=== PATIENT | male | born 1990 | race Caucasian/White ===

== ENCOUNTER 2023-04-04 17:20 | Emergency (ER) | payer OTHER, SELFPAY ==
[2023-04-04 17:28] VITALS: BP 164/79; PULSE 83; RESP 16; TEMP 36.8; O2SAT 99; BMI 21.4
--- NOTE | 2023-04-04 19:34 | DI.CT.S_ITS ---
PROCEDURE: CT SOFT TISSUE NECK W CON INDICATIONS: Chronic lymphadenopathy with problems swallowing TECHNIQUE: After the administration of intravenous contrast, 3.0 mm axial sections acquired from the sella to the aortic arch. Additional oblique axial 3.0 mm sections acquired through the pharynx. 3 mm thick coronal and sagittal reformats were generated. For radiation dose reduction, the following was used: automated exposure control. COMPARISON: None. FINDINGS: Image quality: Excellent. Lymph nodes: No lymphadenopathy in the neck by size criteria. There are bilateral scattered cervical lymph nodes measuring up to 0.7 cm in short axis. Vessels: Visualized vasculature appears patent. Neck spaces: The oropharynx, nasopharynx, and pharynx demonstrate no discrete mucosal mass lesions. There is mild concentric mucosal thickening within the oropharynx. The vocal cords, false vocal cords, pyriform sinuses, epiglottis, vallecula, and tongue base appear within normal limits. Extramucosal spaces appear unremarkable. Glands: The parotid and submandibular glands appear normal. Thyroid gland demonstrates no discrete nodules Miscellaneous: Visualized brain and orbits appear normal. Lung apices appear clear. Superficial soft tissues appear normal. Bones: No suspicious bony lesions. Visualized sinuses and mastoids appear unremarkable. IMPRESSION: 1. No lymphadenopathy in the neck by size criteria. 2. No discrete mucosal mass lesions or evidence of high-grade airway narrowing. Dictated by: Tom Heredia M.D. on 04/04/2023 at 20:48 Approved by: Tom Heredia M.D. on 04/04/2023 at 20:54
--- NOTE | 2023-04-04 19:34 | ED.GENADULT ---
HPI - General Adult General Chief complaint: Upper Respiratory Symptoms Stated complaint: dizzy, infection? upper resp., in pain Time Seen by Provider: 04/04/23 19:24 Source: patient Mode of arrival: Family Vehicle History of Present Illness HPI narrative: Patient is a 32-year-old male who for many months if not longer he is had enlarged lymph nodes in his neck. He states that in the past he has been treated with antibiotics without any improvement of the symptoms. He also states they are uncomfortable. Causing him problems swallowing. He is not had any problems breathing. Is also having episodes of lightheadedness. Despite his symptoms were going on for such a long time he states that recently the dizziness seems to becoming somewhat worse which is why he is here in the emergency department today. Related Data Previous Rx's Medication Instructions Recorded fluticasone propionate 50 1 spray intranasal Q12H #16 grams 03/16/23 mcg/actuation nasal spray,suspension (Flonase Allergy Relief) Allergies Allergy/AdvReac Type Severity Reaction Status Date / Time No Known Drug Allergies Allergy Unverified 04/04/23 17:37 Review of Systems Constitutional Constitutional: Reports system reviewed and no additional complaints, except as documented ENT Ears, Nose, Mouth, and Throat: Reports system reviewed and no additional complaints, except as documented Cardiovascular Cardiovascular: Reports system reviewed and no additional complaints, except as documented Respiratory Respiratory: Reports system reviewed and no additional complaints, except as documented Integumentary/Breasts Skin/Breast: Reports system reviewed and no additional complaints, except as documented Allergic/Immunologic Allergic/Immunologic: Reports system reviewed and no additional complaints, except as documented Patient History Social History Smoking Status: Current every day smoker Smoking Status: Current every day smoker Substance Use Type: marijuana Exam Initial Vital Signs Initial Vital Signs: Vital Signs Temperature 98.2 F 04/04/23 17:28 Pulse Rate 83 04/04/23 17:28 Respiratory Rate 16 04/04/23 17:28 Blood Pressure 164/79 H 04/04/23 17:28 Pulse Oximetry 99 04/04/23 17:28 Oxygen Delivery Method Room Air 04/04/23 17:28 Const General: cooperative, comfortable and No ill appearing HENMT Head: normal to inspection Ears: hearing grossly normal bilaterally and TM's normal bilaterally Throat: posterior oropharynx normal Neck Lymphatic: lymphadenopathy (Bilateral anterior-posterior cervical lymph nodes) Resp Effort & Inspection: normal respiratory effort Auscultation: clear to auscultation bilaterally Cardio Rate: regular rate Skin General: no rashes or lesions noted Course Orders Ordered: ED Orders 04/04/23 19:34 CT soft tissue neck w con Stat 04/04/23 19:43 Complete Blood Count AUTO DIFF Stat Comprehensive Metabolic Panel Stat Lipase Stat Thyroid Stimulating Hormone Stat Vital Signs Vital signs: Vital Signs - 8 hr 04/04/23 19:51 04/04/23 19:52 04/04/23 19:52 Pulse Rate 63 61 Respiratory Rate Blood Pressure 140/84 Pulse Oximetry 100 100 Oxygen Delivery Method 04/04/23 21:17 Pulse Rate 64 Respiratory Rate 16 Blood Pressure 144/98 H Pulse Oximetry 98 Oxygen Delivery Method Room Air Medical Decision Making Lab Data Lab results reviewed: Yes I reviewed the patient's lab results. 04/04/23 19:43 04/04/23 19:43 Labs: Lab Results 04/04/23 04/04/23 04/04/23 Range/Units 19:43 19:43 19:43 WBC 13.0 H (4.5-11.0) X10^3/uL RBC 5.11 (4.5-5.9) X10^6/uL Hgb 15.2 (13.5-17.5) g/dL Hct 43.9 (41-53) % MCV 85.9 (80-100) fL MCH 29.7 (26-34) PG MCHC 34.6 (30-36) % RDW 14.0 (11.6-14.8) % Plt Count 297 (150-400) X10^3/uL Neut % (Auto) 58.2 (50-75) % Lymph % (Auto) 23.7 L (25-40) % [place] % (Auto) 9.7 (3-14) % Eos % (Auto) 7.3 H (2-4) % Baso % (Auto) 1.1 (0-2) % Neut # (Auto) 7600 H (6673-3347) /uL Lymph # (Auto) 3100 (9610-1374) /uL [place] # (Auto) 1300 H (0-900) /uL Eos # (Auto) 1000 H (0-450) /uL Baso # (Auto) 100 (0-100) /uL Sodium 136 L (137-145) mmol/L Potassium 3.7 (3.4-5.1) mmol/L Chloride 103 (98-107) mmol/L Carbon Dioxide 25 (22-32) mmol/L BUN 26 H (9-20) mg/dL Creatinine 0.81 (0.66-1.25) mg/dL Estimated GFR > 60 (>60) mL/min BUN/Creatinine Ratio 32.1 H (6-22) Glucose 101 H (70-100) mg/dL Calcium 9.3 (8.4-10.2) mg/dL Total Bilirubin 0.9 (0.2-1.3) mg/dL AST 24 (17-59) IU/L ALT 24 (<50) IU/L Alkaline Phosphatase 61 (38-126) U/L Total Protein 7.8 (6.3-8.2) g/dL Albumin 4.7 (3.5-5.0) g/dL Globulin 3.1 (1.7-4.1) g/dL Albumin/Globulin Ratio 1.5 (1.0-2.8) Lipase 67 (23-300) U/L TSH 4.03 (0.47-4.68) uIU/mL Imaging Data CT soft tissue of neck: Radiologist's Impression: PROCEDURE:? CT SOFT TISSUE NECK W CON ? INDICATIONS:? Chronic lymphadenopathy with problems swallowing ? TECHNIQUE:? After the administration of intravenous contrast, 3.0 mm axial sections acquired from the sella to the aortic arch.? Additional oblique axial 3.0 mm sections acquired through the pharynx.? 3 mm thick coronal and sagittal reformats were generated.? For radiation dose reduction, the following was used:? automated exposure control.? ? COMPARISON:? None. ? FINDINGS:? Image quality:? Excellent.? ? Lymph nodes:? No lymphadenopathy in the neck by size criteria.? There are bilateral scattered cervical lymph nodes measuring up to 0.7 cm in short axis. ? Vessels:? Visualized vasculature appears patent.? ? Neck spaces:? The oropharynx, nasopharynx, and pharynx demonstrate no discrete mucosal mass lesions.? There is mild concentric mucosal thickening within the oropharynx.? The vocal cords, false vocal cords, pyriform sinuses, epiglottis, vallecula, and tongue base appear within normal limits.? Extramucosal spaces appear unremarkable.? ? Glands:? The parotid and submandibular glands appear normal.? Thyroid gland demonstrates no discrete nodules ? Miscellaneous:? Visualized brain and orbits appear normal.? Lung apices appear clear.? Superficial soft tissues appear normal. ? Bones:? No suspicious bony lesions.? Visualized sinuses and mastoids appear unremarkable. ? ? ? IMPRESSION:? ? 1. No lymphadenopathy in the neck by size criteria. ? 2. No discrete mucosal mass lesions or evidence of high-grade airway narrowing. MDM Narrative Medical decision making narrative: On exam patient did have several bilateral less than 1 cm lymph nodes however on the CT scan there were no pathologic lymph nodes noted by size criteria. His symptoms been going on for months if not longer. There was no indication for antibiotics today. Will discharge patient home with instructions to follow-up with primary doctor. He was given return precautions. He expressed understanding and agreement. Discharge Plan Departure Patient Disposition: Home Clinical Impression: Dizziness Instructions: DI for Dizziness-Nonvertigo Activity Restrictions/Additional Instructions: Recommend that you continue to take all of your medications as directed it is important that you contact your primary doctor for follow-up. Return to the emergency department for new or worsening symptoms. Prescriptions: No Action fluticasone propionate [Flonase Allergy Relief] 50 mcg/actuation spray,suspension 1 spray intranasal Q12H Qty: 16 0RF Rx Instructions: administer into each nostril Referrals: Doctor Saul MD [Primary Care Provider] - Stand Alone Forms: Patient Portal/API
[2023-04-04 19:51] VITALS: PULSE 63; O2SAT 100
[2023-04-04 19:52] VITALS: BP 140/84; PULSE 61; O2SAT 100
[2023-04-04 19:56] LABS: Add Manual Diff / Slide Review NO; Basophils Absolute Auto 100 /uL (0-100); Basophils Percent Auto 1.1 % (0-2); Eosinophils Absolute Auto 1000 /uL (0-450); Eosinophils Percent Auto 7.3 % (2-4); Hematocrit 43.9 % (41-53); Hemoglobin 15.2 g/dL (13.5-17.5); Lymphocytes Absolute Auto 3100 /uL (1100-4500); Lymphocytes Percent Auto 23.7 % (25-40); Mean Corpuscular HGB Conc 34.6 % (30-36); Mean Corpuscular Hemoglobin 29.7 PG (26-34); Mean Corpuscular Volume 85.9 fL (80-100); Monocytes Absolute Auto 1300 /uL (0-900); Monocytes Percent Auto 9.7 % (3-14); Neutrophils Absolute Auto 7600 /uL (1500-7000); Neutrophils Percent Auto 58.2 % (50-75); Platelet Count 297 X10^3/uL (150-400); Red Blood Cell Count 5.11 X10^6/uL (4.5-5.9)
[2023-04-04 20:13] LABS: Alanine Aminotransferase 24 IU/L (<50); Albumin 4.7 g/dL (3.5-5.0); Albumin Globulin Ratio 1.5 (1.0-2.8); Alkaline Phosphatase 61 U/L (38-126); Aspartate Aminotransferase 24 IU/L (17-59); BUN Creatinine Ratio 32.1 (6-22); Bilirubin Total 0.9 mg/dL (0.2-1.3); Blood Urea Nitrogen 26 mg/dL (9-20); Calcium 9.3 mg/dL (8.4-10.2); Carbon Dioxide 25 mmol/L (22-32); Chloride 103 mmol/L (98-107); Estimated Glomerular Filt Rate > 60 mL/min (>60); Globulin 3.1 g/dL (1.7-4.1); Glucose 101 mg/dL (70-100); HEMOLYSIS < 15 (0-50); Lipase 67 U/L (23-300); Potassium 3.7 mmol/L (3.4-5.1); Sodium 136 mmol/L (137-145); Total Protein 7.8 g/dL (6.3-8.2)
[2023-04-04 20:43] LABS: Thyroid Stimulating Hormone 4.03 uIU/mL (0.47-4.68)
[2023-04-04 21:17] VITALS: BP 144/98; PULSE 64; RESP 16; O2SAT 98
== END 2023-04-04 21:18 | disposition home or self-care (01) ==
PROVIDERS: Emergency Provider Emergency Medicine
DX: R42 Dizziness and giddiness (principal); J02.9 Acute pharyngitis, unspecified; R13.10 Dysphagia, unspecified
CPT/HCPCS: 36415; 70491; 80053; 83690; 84443; 85025; 99283; 99284; Q9967

== ENCOUNTER 2024-01-22 18:38 | Emergency (ER) | payer OTHER, SELFPAY ==
[2024-01-22 18:47] VITALS: BP 190/86; PULSE 83; RESP 22; TEMP 37.1; O2SAT 99; BMI 21.4
--- NOTE | 2024-01-22 20:56 | ED.GENADULT ---
HPI - General Adult General Chief complaint: Hypertension Stated complaint: antibiotics didn't work/lump in throat/face numb Time Seen by Provider: 01/22/24 20:56 Source: patient Mode of arrival: Ambulatory History of Present Illness HPI narrative: Left prior to my evaluation Related Data Previous Rx's Medication Instructions Recorded fluticasone propionate 50 1 spray intranasal Q12H #16 grams 03/16/23 mcg/actuation nasal spray,suspension (Flonase Allergy Relief) cetirizine 10 mg tablet (Zyrtec) 10 mg PO DAILY PRN allergy 04/17/23 symptoms #90 tabs Allergies Allergy/AdvReac Type Severity Reaction Status Date / Time No Known Drug Allergies Allergy Unverified 04/17/23 09:22 Patient History Medical History (Updated 04/19/23 @ 00:28 by ) Alcohol dependence in remission Temporomandibular joint disorder (TMJ) Social History Smoking Status: Current every day smoker Smoking Status: Current every day smoker tobacco type: cigarettes Substance Use Type: marijuana Exam Initial Vital Signs Initial Vital Signs: Vital Signs Temperature 98.8 F 01/22/24 18:47 Pulse Rate 83 01/22/24 18:47 Respiratory Rate 22 01/22/24 18:47 Blood Pressure 190/86 H 01/22/24 18:47 Pulse Oximetry 99 01/22/24 18:47 Oxygen Delivery Method Room Air 01/22/24 18:47 Course Vital Signs Vital signs: Vital Signs - 8 hr 01/22/24 18:47 Temperature 98.8 F Pulse Rate 83 Respiratory Rate 22 Blood Pressure 190/86 H Pulse Oximetry 99 Oxygen Delivery Method Room Air Discharge Plan Departure Prescriptions: No Action fluticasone propionate [Flonase Allergy Relief] 50 mcg/actuation spray,suspension 1 spray intranasal Q12H Qty: 16 0RF Rx Instructions: administer into each nostril cetirizine [Zyrtec] 10 mg tablet 10 mg PO DAILY PRN (Reason: allergy symptoms) Qty: 90 3RF Referrals: Nils Mayes DO [Primary Care Provider] -
== END 2024-01-22 21:04 | disposition left against medical advice (07) ==
PROVIDERS: Emergency Provider Emergency Medicine; PCP Family Medicine
DX: R59.9 Enlarged lymph nodes, unspecified (principal)
CPT/HCPCS: 99281

== ENCOUNTER → 2024-03-21 | Outpatient (CLI) | payer OTHER, SELFPAY ==
--- NOTE | 2024-03-21 11:17 | DI.RAD.S_ITS ---
PROCEDURE: FL UPPER GI SERIES INDICATIONS: eval throat pains COMPARISON: CR, XR BARIUM SWALLOW ESOPHAGUS, 02/15/2017, 9:32. [facility], CT, CT SOFT TISSUE NECK W CON, 03/21/2024, 11:27. [facility], CT, CT ABDOMEN PELVIS WITH CONTRAST, 02/14/2024, 18:45. FINDINGS: KUB: Preprocedural crystal slicer film demonstrates a normal bowel gas pattern. No suspicious abdominal calcifications. Visualized solid organ contours appear normal. Bony structures appear unremarkable. Esophagus: Esophageal mucosa is normal on air-contrast views. On single-contrast views, there is normal esophageal peristalsis. No strictures, extrinsic mass effects, or diverticula. No hiatal hernia or elicited gastroesophageal reflux. There is normal transit of a calibrated barium tablet through the esophagus. Stomach: The stomach is normally distensible, with normal rugal fold thickness. No mucosal masses or ulcers. Pylorus and duodenal bulb appear normal in morphology. Duodenal folds are normal in thickness as well. IMPRESSION: Esophageal motility is normal. No stricture. No reflux elicited. Normal passage of a barium tablet. Dictated by: John Pierson M.D. on 03/27/2024 at 13:50 Approved by: John Pierson M.D. on 03/27/2024 at 13:53
--- NOTE | 2024-03-21 11:17 | DI.CT.S_ITS ---
PROCEDURE: CT SOFT TISSUE NECK W CON INDICATIONS: Eval fullness of neck TECHNIQUE: After the administration of intravenous contrast, 3.0 mm axial sections acquired from the sella to the aortic arch. Additional oblique axial 3.0 mm sections acquired through the pharynx. 3 mm thick coronal and sagittal reformats were generated. For radiation dose reduction, the following was used: automated exposure control. COMPARISON: [facility], CT, CT CERVICAL SPINE WO CON, 10/29/2015, 14:53. [facility], CT, CT SOFT TISSUE NECK W CON, 04/04/2023, 20:01. FINDINGS: Image quality: There is streak artifact seen through the level of the shoulders. Be here and a Lymph nodes: No enlarged lymph nodes seen throughout the neck. Vessels: Visualized vasculature appears patent. Neck spaces: The oropharynx, nasopharynx, and pharynx demonstrate no mucosal lesions. The vocal cords, false vocal cords, pyriform sinuses, epiglottis, vallecula, and tongue base all appear normal. Extramucosal spaces appear unremarkable. Glands: The area of clinical concern is marked which of the left lateral neck, with the marker seen on series 5, image 48. This is seen overlying the normal left submandibular gland. The left similar gland is slightly more prominent than the normal right submandibular gland. No masses or other abnormalities can be seen associated with either submandibular gland. The degree of asymmetry between the 7 appear glands is not considered to be pathologic. The parotid glands appear normal. Thyroid gland demonstrates no significant abnormality. Miscellaneous: Visualized brain and orbits appear normal. Lung apices appear clear. Superficial soft tissues appear normal. Bones: No suspicious bony lesions. Visualized sinuses and mastoids appear unremarkable. IMPRESSION: The area of palpable concern corresponds to a normal appearing left submandibular gland, which is slightly more prominent than the right submandibular gland. Dictated by: Pedro Luis Doty M.D. on 03/21/2024 at 12:29 Approved by: Pedro Luis Doty M.D. on 03/21/2024 at 12:31
== END ==
LOC: RAD 11:17
PROVIDERS: PCP Family Medicine; Referring Provider Family Medicine; Visit Provider Family Medicine
DX: R13.13 Dysphagia, pharyngeal phase (principal); R10.13 Epigastric pain; R49.9 Unspecified voice and resonance disorder
CPT/HCPCS: 70491; 74240; Q9967

== ENCOUNTER 2024-11-07 16:43 | Emergency (ER) | payer OTHER, SELFPAY ==
[2024-11-07] VITALS (8 sets, daily range): BP systolic 125–172; BP diastolic 72–100; PULSE 50–74; RESP 17–23; TEMP 36.9; O2SAT 98–100; BMI 22.1
--- NOTE | 2024-11-07 16:56 | DI.RAD.S_ITS ---
PROCEDURE: XR CHEST 1V INDICATIONS: chest pain TECHNIQUE: One view of the chest was acquired. COMPARISON: [facility], CR, XR CHEST 2 VIEWS, 02/14/2024, 17:09. FINDINGS: Surgical changes and devices: None. Lungs and pleura: Lungs are clear. No pleural effusions or pneumothorax. Mediastinum: Mediastinal contours appear normal. Heart size is normal. Bones and chest wall: No suspicious bony lesions. Overlying soft tissues appear unremarkable. IMPRESSION: No acute cardiopulmonary abnormality is seen. Approved by: Scotty Leon M.D. on 11/07/2024 at 17:49
--- NOTE | 2024-11-07 17:06 | EKG_ITS ---
[address] [address] Test Date: 2024-11-07 Pat Name: Ceferino Alarcon Department: [facility] Room: Gender: Male Practice Assistant: ALE : 1990 Requested By: Order Number: [id number] Reading MD: Yrn Kc Measurements Intervals [place] Rate: 65 P: 42 NH: 158 QRS: 74 QRSD: 84 T: 55 QT: 370 QTc: 384 Interpretive Statements Normal sinus rhythm Electronically Signed On 11-07-2024 17:50:00 PST by Yrn Kc
[2024-11-07 17:31] LABS: Add Manual Diff / Slide Review NO; Basophils Absolute Auto 100 /uL (0-100); Basophils Percent Auto 1.2 % (0-2); Eosinophils Absolute Auto 1100 /uL (0-450); Hematocrit 47.3 % (41-53); Hemoglobin 16.1 g/dL (13.5-17.5); Lymphocytes Absolute Auto 3000 /uL (1100-4500); Lymphocytes Percent Auto 27.9 % (25-40); Mean Corpuscular HGB Conc 34.1 % (30-36); Mean Corpuscular Hemoglobin 29.7 PG (26-34); Mean Corpuscular Volume 87.2 fL (80-100); Monocytes Absolute Auto 900 /uL (0-900); Neutrophils Absolute Auto 5700 /uL (1500-7000); Neutrophils Percent Auto 52.9 % (50-75); Platelet Count 337 X10^3/uL (150-400); Red Blood Cell Count 5.43 X10^6/uL (4.5-5.9); Red Cell Distribution Width 13.8 % (11.6-14.8); White Blood Cell Count 10.8 X10^3/uL (4.5-11.0)
[2024-11-07 17:36] LABS: INR 0.9 (0.9-1.3); Prothrombin Time 10.5 SECONDS (9.4-12.5)
[2024-11-07 17:39] LABS: PTT Partial Thromboplastin Tim 29 SECONDS (25.1-36.5)
[2024-11-07 17:40] LABS: Alanine Aminotransferase 25 IU/L (<50); Albumin 4.7 g/dL (3.5-5.0); Albumin Globulin Ratio 1.4 (1.0-2.8); Alkaline Phosphatase 50 U/L (38-126); Aspartate Aminotransferase 29 IU/L (17-59); BUN Creatinine Ratio 21.1 (6-22); Bilirubin Total 0.6 mg/dL (0.2-1.3); Blood Urea Nitrogen 16 mg/dL (9-20); Calcium 9.6 mg/dL (8.4-10.2); Carbon Dioxide 23 mmol/L (22-32); Chloride 105 mmol/L (98-107); Creatine Kinase 58 U/L (55-170); Estimated Glomerular Filt Rate > 60 mL/min (>60); Globulin 3.3 g/dL (1.7-4.1); Glucose 94 mg/dL (70-100); HEMOLYSIS 17 (0-50); Lipase 50 U/L (23-300); Potassium 3.9 mmol/L (3.4-5.1); Sodium 136 mmol/L (137-145)
[2024-11-07 17:51] LABS: NT-proBNP (BNP-Adult 18+) < 20 pg/mL (<125); Troponin I < 0.012 ng/mL (0.01-0.034)
--- NOTE | 2024-11-07 17:52 | PC.NURSE ---
Patient is a 34 year old male that's alert and oriented and calm and does not appear to be in acute distress at this time. His skin is warm pink and dry. He appears well despite having multiple concerns. patient has been having coughing up green sputum with blood with chest pain for several months now. He smokes cigs and MJ but is trying to quit smoking. He smoke alot of dabs since hes trying to quit smoking cigs. He denies alcohol abuse. Patient also has been having nausea with left lower abd pain. He also states his stools have been green, yellow, and frothy lately which is not normal for him. He has been eating less food due to being nauseated all the time. He states that his mom had pancreatic cancer and is concerned for that. He has a headache with what he calls fuzzyness down the left side of his head, neck, and chest. He also complains of back pain in the mid thoracic area.
--- NOTE | 2024-11-07 18:41 | ED_ITS ---
HPI - Chest Pain General Chief Complaint: Chest Pain Stated Complaint: CAMEJO x7days, phlemy cough, body aches Time Seen by Provider: 11/07/24 17:31 Source: patient Mode of arrival: Ambulatory Limitations: no limitations History of Present Illness HPI narrative: Patient was a 34-year-old male here for evaluation of approximately 7 days of headache, cough, body aches, sore throat, enlarged lymph nodes come and go in his neck. No shortness of breath. No vomiting. No skin rashes. He would similar symptoms earlier this year that lasted several days then resolved. Patient has been doing Tylenol and ibuprofen. Related Data Previous Rx's Medication Instructions Recorded omeprazole 20 mg capsule,delayed 20 mg PO DAILY #90 caps 02/09/24 release Allergies Allergy/AdvReac Type Severity Reaction Status Date / Time No Known Drug Allergies Allergy Unverified 02/09/24 16:27 Review of Systems Review of Systems ROS Unobtainable: All systems reviewed & are unremarkable except as noted in HPI and below Patient History Medical History Dyspepsia Hoarseness or changing voice Dysphagia Alcohol dependence in remission Temporomandibular joint disorder (TMJ) Social History Smoking Status: Current every day smoker Smoking Status: Current every day smoker tobacco type: cigarettes and smokeless tobacco Exam Initial Vital Signs Initial Vital Signs: Vital Signs Temperature 98.5 F 11/07/24 16:51 Pulse Rate 70 11/07/24 16:51 Respiratory Rate 18 11/07/24 16:51 Blood Pressure 172/100 H 11/07/24 16:51 Pulse Oximetry 100 11/07/24 16:51 Oxygen Delivery Method Room Air 11/07/24 16:51 Const General: cooperative, comfortable and No ill appearing HENMT Head: normal to inspection and normocephalic Mouth: oral mucosae normal and moist mucous membranes Throat: posterior oropharynx normal Neck Lymphatic: lymphadenopathy Resp Effort & Inspection: normal respiratory effort Cardio Rate: regular rate Skin General: no rashes or lesions noted Neuro General: patient alert, patient awake, patient oriented x3 and moves all extremities Extrem General: No edema Course Orders Ordered: ED Orders 11/07/24 17:17 Complete Blood Count AUTO DIFF Stat Comprehensive Metabolic Panel Stat Lipase Stat Magnesium Stat Monotest Stat NT-proBNP (BNP-Adult 18+) Stat PTT Partial Thromboplastin [place] Stat Prothrombin Time INR Stat Troponin & CK Cardiac Panel Stat Discontinued Medications Prednisone (Prednisone 20 Mg Tablet) 20 mg PO NOW ONE Stop: 11/07/24 19:36 Last Admin: 11/07/24 19:42 Dose: 20 mg Documented By: CLAUDETTE Vital Signs Vital signs: Vital Signs - 8 hr 11/07/24 18:30 11/07/24 18:30 11/07/24 19:00 Pulse Rate 51 L Respiratory Rate 20 Blood Pressure 125/76 139/79 Pulse Oximetry 98 11/07/24 19:00 11/07/24 19:30 11/07/24 19:30 Pulse Rate 52 L 50 L Respiratory Rate 23 23 Blood Pressure 129/78 Pulse Oximetry 99 98 MDM - Chest Pain Lab Data Attestation: I reviewed the patient's lab results. 11/07/24 17:17 11/07/24 17:17 Labs: Lab Results 11/07/24 Range/Units 17:17 WBC 10.8 (4.5-11.0) X10^3/uL RBC 5.43 (4.5-5.9) X10^6/uL Hgb 16.1 (13.5-17.5) g/dL Hct 47.3 (41-53) % MCV 87.2 (80-100) fL MCH 29.7 (26-34) PG MCHC 34.1 (30-36) % RDW 13.8 (11.6-14.8) % Plt Count 337 (150-400) X10^3/uL Neut % (Auto) 52.9 (50-75) % Lymph % (Auto) 27.9 (25-40) % [place] % (Auto) 8.0 (3-14) % Eos % (Auto) 10.0 H (2-4) % Baso % (Auto) 1.2 (0-2) % Neut # (Auto) 5700 (4890-6168) /uL Lymph # (Auto) 3000 (3756-1351) /uL [place] # (Auto) 900 (0-900) /uL Eos # (Auto) 1100 H (0-450) /uL Baso # (Auto) 100 (0-100) /uL PT 10.5 (9.4-12.5) SECONDS INR 0.9 (0.9-1.3) APTT 29 (25.1-36.5) SECONDS Sodium 136 L (137-145) mmol/L Potassium 3.9 (3.4-5.1) mmol/L Chloride 105 (98-107) mmol/L Carbon Dioxide 23 (22-32) mmol/L BUN 16 (9-20) mg/dL Creatinine 0.76 (0.66-1.25) mg/dL Estimated GFR > 60 (>60) mL/min BUN/Creatinine Ratio 21.1 (6-22) Glucose 94 (70-100) mg/dL Calcium 9.6 (8.4-10.2) mg/dL Magnesium 2.0 (1.6-2.3) mg/dL Total Bilirubin 0.6 (0.2-1.3) mg/dL AST 29 (17-59) IU/L ALT 25 (<50) IU/L Alkaline Phosphatase 50 (38-126) U/L Total Creatine Kinase 58 (55-170) U/L Troponin I < 0.012 (0.01-0.034) ng/mL NT-Pro-B Natriuret Pep < 20 (<125) pg/mL Total Protein 8.0 (6.3-8.2) g/dL Albumin 4.7 (3.5-5.0) g/dL Globulin 3.3 (1.7-4.1) g/dL Albumin/Globulin Ratio 1.4 (1.0-2.8) Lipase 50 (23-300) U/L Monoscreen Negative (Negative) Imaging Data Chest x-ray: Radiologist's Impression: PROCEDURE: XR CHEST 1V INDICATIONS: chest pain TECHNIQUE: One view of the chest was acquired. COMPARISON: [facility], CR, XR CHEST 2 VIEWS, 02/14/2024, 17:09. FINDINGS: Surgical changes and devices: None. Lungs and pleura: Lungs are clear. No pleural effusions or pneumothorax. Mediastinum: Mediastinal contours appear normal. Heart size is normal. Bones and chest wall: No suspicious bony lesions. Overlying soft tissues appear unremarkable. IMPRESSION: No acute cardiopulmonary abnormality is seen. ECG Data Attestation: I personally reviewed and interpreted this ECG as follows: Interpretation: Sinus rhythm Ventricular rate is 65 Normal axis Normal QRS Normal QTC No ST T wave changes MDM Narrative Medical decision making narrative: Labs unremarkable. Chest x-ray is unremarkable here low suspicion for ACS. No signs of pneumonia. Patient declined the offer for testing for the flu/COVID. He does have left-sided lymphadenopathy. [place] test is negative. No indication for antibiotics. I do suspect viral illness. Recommended that he contacted his primary care doctor for follow up. Discussed the use of Tylenol and ibuprofen. He was given return precautions. He expressed understanding and agreement with the plan. Discharge Plan Departure Patient Disposition: Home Clinical Impression: Headache, Influenza-like symptoms Instructions: DI for Headache Activity Restrictions/Additional Instructions: Continue to take all of your medications as directed. Contact your primary care doctor for a follow-up. Return to the emergency department for new or worsening symptoms. Prescriptions: No Action omeprazole 20 mg capsule,delayed release(DR/EC) 20 mg PO DAILY Qty: 90 1RF Referrals: Gunnar Mancini DO [Primary Care Provider] - Stand Alone Forms: Patient Portal/API/Survey
[2024-11-07 18:57] LABS: Monotest Negative (Negative)
[2024-11-07] MEDS: predniSONE 20 MG TABLET PO (19:42)
== END 2024-11-07 19:44 | disposition home or self-care (01) ==
PROVIDERS: Emergency Medicine; Emergency Provider Emergency Medicine; PCP Family Medicine
DX: J02.9 Acute pharyngitis, unspecified (principal); R51.9 Headache, unspecified; R07.9 Chest pain, unspecified; R05.9 Cough, unspecified; R59.9 Enlarged lymph nodes, unspecified; F17.210 Nicotine dependence, cigarettes, uncomplicated; F17.290 Nicotine dependence, other tobacco product, uncomplicated
CPT/HCPCS: 36415; 71045; 80053; 82550; 83690; 83735; 83880; 84484; 85025; 85610; 85730; 86318; 93005; 99284